=== PATIENT | female | born 1945 | race Caucasian/White ===

== ENCOUNTER → 2017-02-22 | Outpatient (CLI) | payer MEDICARE, OTHER ==
--- NOTE | ~2017-02-22 | ECHO ---
Transthoracic Echocardiography Report (TTE) Demographics Patient Name LOUIE MUELLER Date of Study 02/22/2017 Patient Number [id number] Visit Number [id number] Date of 1945 Room Number Gender Female Number Age 71 year[facility]s) [facility] Humberto Vinson Fire Engine Pump Operator Angelica Villatoro, Physician RT,RVT,RDCS Physician Interpreting Mackvanessa Gutierrezdha Bath Mix Operator Physician MD [facility] Humberto Vinson MD, MD/MLP Physician Nurse Stress Software Qa Manager Conclusions Contractility Score Summary Normal Left Ventricular contractility was noted. Summary Normal LV/RV size and systolic function. The estimated left ventricular ejection fraction is 55-60%. Mild assymetric septal left ventricular hypertrophy. Diastolic assessment reveals Grade I diastolic dysfunction. No significant valvular abnormalities. Procedure Type of Study TTE procedure:2D Echocardiogram, M-Mode, Doppler , Color Doppler. Procedure Date Date: 02/22/2017 Start: 12:35 PM Study Location: Echo Lab Technical Quality: Adequate visualization Indications:Arrhythmia. Additional Indications:Long QT interval Appropriate Use Criteria: 9 Patient Status: Routine HR: 67 bpm BP: 125/73 mmHg M-Mode/2D Measurements LV Diastolic Dimension: 3.07 cm LV Systolic Dimension: 2.38 cm LV Septum Diastolic: 2.02 cm LV Septum Systolic: 1.57 cm LV PW Diastolic: 1.53 cm LV PW Systolic: 1.57 cm Cardiac Output: 5.15 l/min EF Estimated: 60 % LVOT: 2.1 cm MV EPSS: 0.6 cm LVOT VTI: 22.2 cm LV Stroke volume: 76.85 ml Doppler Measurements AV Peak Velocity: 1.22 m/s MV Peak E-Wave: 0.53 m/s AV Peak Gradient: 5.95 mmHg MV Peak A-Wave: 0.95 m/s AV Mean Gradient: 3 mmHg MV E/A Ratio: 0.56 LVOT Peak Velocity: 1.1 m/s MV P1/2t: 86 msec TR Gradient:14.59 mmHg PV Peak Velocity: 0.92 m/s Estimated RAP:10 mmHg PV Peak Gradient: 3.37 mmHg Estimated RVSP: 25 mmHg Estimated PASP: 24.59 mmHg E' Septal Velocity: 0.05 m/s A' Septal Velocity: 0.09 m/s MV E/E' Ratio: 11.3 Findings Left Ventricle Mild assymetric septal left ventricular hypertrophy. Diastolic assessment reveals Grade I diastolic dysfunction. Right Ventricle Normal right ventricle structure and function. Left Atrium Normal left atrial size. Right Atrium Normal right atrial size. IVC imaging is consistent with normal RA pressures. Mitral Valve Normal mitral valve structure and function. Aortic Valve The aortic valve is mildly sclerotic. Tricuspid Valve Normal tricuspid valve structure and function. Pulmonic Valve Normal pulmonic valve structure and function. Pericardial Effusion No evidence of pericardial effusion. Miscellaneous Visualized portions of the aortic root and ascending aorta appear normal in size. Pleural Effusion No evidence of pleural effusion. Contractility Score LV regional wall motion:(0-Non visualized 1-Normal 2-Hypokinesis 3-Akinesis 4-Dyskinesis 5-Aneurysm) Signature dtt: VIDHI JOHNSON dtd: 02/22/17 1375 Physician Self Edit
== END | disposition disaster alternative care site (69) ==
LOC: GBCOE 02-15 12:30
DX: Z12.31 Encounter for screening mammogram for malignant neoplasm of breast (principal); I51.7 Cardiomegaly; R94.31 Abnormal electrocardiogram [ECG] [EKG]
CPT/HCPCS: G0202